=== PATIENT | female | born 1970 | race Two or more races ===

== ENCOUNTER → 2016-06-28 | Outpatient (CLI) | payer OTHER ==
--- NOTE | ~2016-06-28 | US77 ---
[facility] RADIOLOGY TEXT RESULTS PATIENT: NETTIE SOLORIO LOCATION: [facility] : 70 UNIT #: [id number] AGE: [address]: Steve Verma MD SEX: F ORDER DR: [id number] [facility] [address] [place], [place] [address] [id number] O MR#: [id number] Acc #: [id number] NAME: NETTIE SOLORIO : 1970 SEX: F STUDY DATE/TIME: 06/28/2016 14:14 UNIT: [facility]US ROOM: STUDY DESCRIPTION: US Kidney Bilateral Complete Attending Physician: Steve Verma M.D. Referring Physician: Steve Verma M.D. Ordering Physician: Steve Verma M.D. Primary Care Physician: Steve Verma M.D. MEDICAL IMAGING REPORT This report is preliminary unless electronic signature is present EXAM Renal ultrasound. DATE OF EXAM 06/28/2016 HISTORY Left flank pain for 2 years. Follow up left renal cyst. FINDINGS The right kidney measures 12.1 cm, while the left kidney measures 9.5 cm in longitudinal dimensions. There is no evidence of hydronephrosis or nephrolithiasis. There is a 6 cm simple cyst on the left kidney. No solid mass lesions are identified. There is normal renal cortical echogenicity. Images of the bladder are normal. IMPRESSION 1. 6 cm left renal cyst, otherwise, negative renal ultrasound. 2. Images of the bladder are normal. Dictated by... Ketan Sparks M.D. THIS IS AN ELECTRONICALLY VERIFIED REPORT Ketan Sparks M.D. at 06/29/2016 2:12 PM CRISTY/landon TD: 06/28/2016 21:01 JOB #: [id number] [facility] RADIOLOGY TEXT RESULTS PATIENT: NETTIE SOLORIO LOCATION: [facility] : 70 UNIT #: [id number] AGE: [address]: Steve Verma MD SEX: F ORDER DR: MEDICAL IMAGING REPORT Page 1 of 1 COPY
== END | disposition home or self-care (01) ==
LOC: CGUS 13:49
DX: R10.9 Unspecified abdominal pain (principal); N28.1 Cyst of kidney, acquired; Z87.448 Personal history of other diseases of urinary system
CPT/HCPCS: 76770